=== PATIENT | female | born 1990 | race Caucasian/White ===

== ENCOUNTER 2023-07-27 06:41 | Inpatient (IN) | payer OTHER ==
[2023-07-27] VITALS (26 sets, daily range): BP systolic 102–133; BP diastolic 55–86; PULSE 56–95; TEMP 98–98.2
[~2023-07-27] VITALS: Ht 175.3 cm; Wt 129.5 kg
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
[2023-07-27] MEDS ORDERED: LEXAPRO20 MG PO (07:31)
[2023-07-27] MEDS ORDERED: GLUCOPHAGE500 MG/TAB PO (07:31)
[2023-07-27] MEDS ORDERED: PRENATAL TABLET PO (07:32)
[2023-07-27 07:58] LABS: BASO % 0.2 % (0.0-2.0); EOS # 0.1 K/mm3 (0.0-0.7); EOS % 1.4 % (0.0-4.0); GRAN # 6.5 K/mm3 (1.4-6.5); GRAN % 63.6 % (42.2-75.2); HEMOGLOBIN 11.9 g/dl (12.5-16.0); LYMPH # 2.8 K/mm3 (1.2-3.4); LYMPH % 27.2 % (20.0-51.0); MEAN CELL VOLUME 85 fl (80.0-100.0); MEAN CORPUSCULAR HEMOGLOBIN 28 pg (27-31); MEAN CORPUSCULAR HGB CONC 33 g/dl (33.0-37.0); MEAN PLATELET VOLUME 9.3 fl (7.4-10.4); MONO # 0.7 K/mm3 (0.1-0.6); PLATELET COUNT 280 K/mm3 (130-400); RED BLOOD COUNT 4.25 M/mm3 (4.10-5.30); REDCELL DISTRIBUTION WIDTH-CV 13.4 % (11.5-14.5)
[2023-07-27 08:01] LABS: HEMATOCRIT 36.3 % (37.0-47.0)
--- NOTE | 2023-07-27 12:00 | NUR ---
1136- PT COMPLETE 1138- CALLED DR GOLDBERG TO UPDATE HIM THAT PT WAS COMPLETE. HE STATED THAT HE WAS ON HIS WAY. 1146- SUÁREZ REMOVED. 1157- DR GOLDBERG AT BEDSIDE. PT BEGAN PUSHING. 1200- SPONTANEOUS VAGINAL DELIVERY OF A VIABLE BABY BOY. PLACED ON MOM'S ABDOMIN. FOB CUT THE CORD. BABY WAS THEN PLACED SKIN TO SKIN WITH MOM. CARE OF BABY WAS TAKEN OVER BY NURSEY [facility]UR[facility]. 1209- SPONTANEOUS DELIVERY OF THE PLACENTA. BLEEDING MINIMAL. EBL [address] GOLDBERG. PITOCIN STARTED PER PROTOCOL. PERINEUM INTACT, NO REPAIRS NEEDED.
[2023-07-28 04:00] VITALS: BP 126/63; PULSE 66; TEMP 97.5
[2023-07-28 06:50] VITALS: BP 110/68; PULSE 69; TEMP 97.7
[2023-07-28 07:43] LABS: HEMOGLOBIN 10.5 g/dl (12.5-16.0)
[2023-07-28 07:55] LABS: HEMATOCRIT 31.3 % (37.0-47.0)
--- NOTE | 2023-07-28 09:37 | NUR ---
Initial visit; Patient thanked Legal Executive for offering congratulations and God's blessings for the of her son. Legal Executive thanked Bailey for choosing [place].
--- NOTE | 2023-07-28 13:30 | NUR ---
DISCHARGED ECUATION COMPLETED, HEALTH HISTORY GIVEN, NEED TO CALL AND MAKE FOLLOW UP APPOINTMENT DISCUSSED. QUESTIONS INVITED AND ANSWERED.
== END 2023-07-28 14:10 | disposition home or self-care (01) | DRG 807 ==
LOC: LDR 06:41 → OB 06:41
PROVIDERS: ADMIT Obstetrics & Gynecology
PROC: 10E0XZZ Delivery of Products of Conception, External Approach (ICD-10-PCS; principal; 2023-07-27)
PROC: 3E033VJ Introduction of Other Hormone into Peripheral Vein, Percutaneous Approach (ICD-10-PCS; 2023-07-27)
PROC: 10907ZC Drainage of Amniotic Fluid, Therapeutic from Products of Conception, Via Natural or Artificial Opening (ICD-10-PCS; 2023-07-27)
DX: O36.63X0 Maternal care for excessive fetal growth, third trimester, not applicable or unspecified (principal); Z37.0 Single live birth; Z3A.39 39 weeks gestation of pregnancy; O99.284 Endocrine, nutritional and metabolic diseases complicating childbirth; E28.2 Polycystic ovarian syndrome; O99.344 Other mental disorders complicating childbirth; F41.9 Anxiety disorder, unspecified; O99.214 Obesity complicating childbirth; Z23 Encounter for immunization
CPT/HCPCS: J2795; J7120